=== PATIENT | male | born 1970 | race Caucasian/White ===

== ENCOUNTER 2024-03-05 09:06 | Emergency (ER) | payer BC, SELFPAY ==
[2024-03-05 09:08] VITALS: BP 146/100
--- NOTE | 2024-03-05 09:16 | ED.GENMED ---
History of Present Illness
General
Chief Complaint: Back Pain
Time Seen by Provider: 03/05/24 09:14
History of Present Illness
History of Present Illness:
54 yo male w/ hx of CAD s/p CABG x 3 presents to the Emergency Department for evaluation of R flank pain x >1 month. Describes an episodic, sharp pain in the right costovertebral angle, non radiating, without obvious modifying factors. Initial
presentation of pain occurred while painting but resolved. No exertional or positional component. Pain has gradually worsened since onset. No fevers, night sweats, weight loss, hematuria, coughing, pleuritic pain, anterior abd pain, N/V/D or julio
colored stool/melena. Notes that he had a routine echocardiogram (box repairer Dr Barnes @ [place]) completed in the interim since pain onset due to his prior CAD that was 'normal'.
Review of Systems
Review of Systems
Allergies reviewed?: Yes
All Other Systems: ROS reviewed and negative except as documented in HPI and ROS
Phy Exam
Physical Exam
Physical Exam:
GEN: Well appearing, NAD, WDWN
HEENT: Oral mucosa moist, no scleral icterus
Cardiac: Regular rate
Lung: No respiratory distress, no tachypnea
Abdomen: Soft, grossly non tender, no masses palpated. No pain w/ kidney capture
MSK: No gross deformity or injuries. No pain on palpation of the R lower thoracic back/costovertebral angle. No midline spinous process tenderness to T/L spine
Skin: Good color, no pallor or jaundice, no rashes
Neuro: AO x3, moves all extremities freely
Psych: Calm, cooperative
Course
Orders/Labs/Results
Orders:
Orders
03/05/24 09:27
US Renal Only W/O Bladder Urgent
Comment:
Reason For Exam: R flank pain
03/05/24 09:40
Complete Blood Count/No Diff Urgent
Comprehensive Metabolic Panel Urgent
03/05/24 10:41
Urinalysis Urgent
Date Specimen was Collected: 03/05/24
Time Specimen was Collected: 10:39
Abnormal Lab Results
03/05/24
09:40
RBC 4.24 L 10^6/uL
(4.70-6.10)
Hct 36.8 L %
(39.0-52.0)
Glucose 114 H mg/dl
(70-99)
03/05/24 09:40
03/05/24 09:40
Vital Signs
Initial and Last Documented VS:
Initial Vital Signs
Temp Pulse Resp BP Pulse Ox
98.0 F 98 20 146/100 97
03/05/24 09:08 03/05/24 09:08 03/05/24 09:08 03/05/24 09:08 03/05/24 09:08
Last Documented Vital Signs
Temp Pulse Resp BP Pulse Ox
98.0 F 80 19 136/86 94
03/05/24 09:08 03/05/24 11:00 03/05/24 11:00 03/05/24 11:00 03/05/24 11:00
MDM/Problems Addressed
MDM/Problems Addressed:
Labs and renal ultrasound unremarkable. Despite the persistence of the pain for greater than 1 month would favor musculoskeletal etiology. Recommend outpatient orthopedic follow-up to discuss potential thoracic spine MRI. Do not see indication
for abdominal CT as he has no anterior abdominal tenderness or symptoms that would suggest an abdominal pathology
*Critical Care Note
Total Time (30-74mins, 75-104mins- exclusive of procedures): Not Applicable
ED Attending Note
-
Portions of this chart may have been created with voice recognition software.� Occasional wrong word or��sound alike� substitutions may have occurred due to the inherent limitations of voice recognition software.
Discharge Plan
Departure
Patient Disposition: Home (Routine Discharge)
Date of Disposition: 03/05/24
Time of Disposition: 11:08
Patient with high blood pressure during this ER visit?: No
Discharge Problem:
Acute thoracic myofascial strain
Instructions: Upper Back Pain (DC)
Prescriptions:
New
methocarbamol 750 mg tablet
750 - 1,500 mg PO Q8H PRN (Reason: Muscle spasms) Qty: 30 0RF
Referrals:
Barbara Mota DO [Family Provider] -
Activity Restrictions/Additional Instructions:
Please discuss a possible MRI of the thoracic spine with your Orthopedic team
Interventions
Interventions:
*Risk Screen - Suicide Last Done: 03/05/24 09:40
*General Assessment Last Done: 03/05/24 09:40
*Neglect/Abuse Screening Last Done: 03/05/24 09:40
ED- Fall Risk Assessment Last Done: 03/05/24 09:40
*ED COVID-19 Vaccine History Last Done: 03/05/24 09:40
ED-Musculoskeletal Assessment Last Done: 03/05/24 09:40
Discharge Date and Time
Print Language: [facility]
--- NOTE | 2024-03-05 09:20 | EDRN ---
Ce Valenzuela PA in room w/pt at this time.
--- NOTE | 2024-03-05 09:30 | EDRN ---
Pt aware mid stream clean catch urine spec needed w/ wipes and urine cup placed in BR.
[2024-03-05 09:46] LABS: Hematocrit 36.8 % (39.0-52.0); Mean Corp Hgb Conc. 35.3 g/dL (33.0-37.0); Mean Corpuscular Hgb 30.7 pg (27.0-31.0); Mean Corpuscular Volume 86.8 fL (80.0-94.0); Mean Platelet Volume 9.3 fL (7.4-10.4); Platelet Count 240 10^3/uL (130-400); Red Blood Cell Count 4.24 10^6/uL (4.70-6.10); Red Cell Dist. Width 13.2 % (11.5-14.5); White Blood Cell Count 5.1 10^3/uL (4.8-10.8)
[2024-03-05 09:58] VITALS: BP 138/92
[2024-03-05 10:01] VITALS: BP 126/92
[2024-03-05 10:06] VITALS: BMI 35.5
[2024-03-05 10:19] LABS: ALT (SGPT) 43 U/L (0-50); AST (SGOT) 52 U/L (17-59); Albumin 3.8 g/dl (3.5-5.0); Alkaline Phosphatase 81 U/L (38-126); Blood Urea Nitrogen 18 mg/dl (9-20); Calcium 9.9 mg/dl (8.4-10.2); Carbon Dioxide 25 mmol/L (22-30); Chloride 106 mmol/L (98-107); Estimated Creatinine Clearance 115 ml/min; Glucose 114 mg/dl (70-99); Potassium 3.8 mmol/L (3.5-5.1); Sodium 142 mmol/L (135-145); Total Protein 6.3 g/dl (6.3-8.2); eGFR > 60.00
--- NOTE | 2024-03-05 10:42 | EDRN ---
Urine spec obtained and sent at this time.
[2024-03-05 10:52] LABS: Urine Albumin Negative (Neg - Trace); Urine Bilirubin Negative (Negative); Urine Character Clear (Clear); Urine Color Yellow; Urine Glucose Negative (Negative); Urine Ketone Negative (Negative); Urine Leukocyte Negative (Negative); Urine Nitrite Negative (Negative); Urine Occult Blood Negative (Negative); Urine Specific Gravity 1.015 (<1.030); Urine Urobilinogen Negative (Neg - 1+)
[2024-03-05 11:00] VITALS: BP 136/86
== END 2024-03-05 11:20 | disposition home or self-care (01) ==
LOC: EMR 09:06
PROVIDERS: Physician Assistant; EMERGENCY PHYSICIAN Emergency Medicine; FAMILY PHYSICIAN Internal Medicine
DX: S29.012A Strain of muscle and tendon of back wall of thorax, initial encounter (principal); X58.XXXA Exposure to other specified factors, initial encounter; I25.10 Atherosclerotic heart disease of native coronary artery without angina pectoris; Z95.1 Presence of aortocoronary bypass graft
CPT/HCPCS: 99284; 76775; 80053; 81003; 85027

== ENCOUNTER → 2025-05-02 06:55 | Outpatient (REF) | payer BC, SELFPAY | LOC: RAD 06:55 | PROVIDERS: ATTENDING PHYSICIAN Surgery; FAMILY PHYSICIAN Internal Medicine | DX: R31.29 Other microscopic hematuria (principal) | CPT/HCPCS: 74178; Q9967 ==

== ENCOUNTER → 2025-05-04 06:33 | Outpatient (REF) | payer BC, SELFPAY | LOC: REG 06:33 | PROVIDERS: ATTENDING PHYSICIAN Surgery; FAMILY PHYSICIAN Internal Medicine | DX: R31.29 Other microscopic hematuria (principal) | CPT/HCPCS: 87070 ==

== ENCOUNTER → 2025-05-08 06:30 | Outpatient (REF) | payer BC, SELFPAY | LOC: REG 06:30 | PROVIDERS: ATTENDING PHYSICIAN Surgery; FAMILY PHYSICIAN Internal Medicine | DX: R31.29 Other microscopic hematuria (principal) | CPT/HCPCS: 87070 ==